=== PATIENT | female | born 1955 | race African-American/Black ===

== ENCOUNTER 2024-04-06 18:27 | Emergency (ER) | payer MEDICAID, OTHER ==
[~2024-04-06] VITALS: Ht 165.1 cm; Wt 77.0 kg
[2024-04-06 18:33] VITALS: BP 110/83; PULSE 85; RESP 18; O2SAT 98
[2024-04-06 20:36] VITALS: TEMP 98.3
[2024-04-06] MEDS: ACETAMINOPHEN 325MG TABLET PO ONE (20:36)
[2024-04-06] MEDS ORDERED: IBUP-2028 MT (20:45)
== END 2024-04-06 21:29 | disposition home or self-care (01) ==
LOC: ER 18:27
DX: S92.322A Displaced fracture of second metatarsal bone, left foot, initial encounter for closed fracture (principal); S92.332A Displaced fracture of third metatarsal bone, left foot, initial encounter for closed fracture; S92.342A Displaced fracture of fourth metatarsal bone, left foot, initial encounter for closed fracture; W18.39XA Other fall on same level, initial encounter; Y93.89 Activity, other specified; Y92.89 Other specified places as the place of occurrence of the external cause; Y99.8 Other external cause status
CPT/HCPCS: 73610; 73630; 99284